=== PATIENT | female | born 1940 | race Caucasian/White ===

== ENCOUNTER 2017-02-15 01:51 | Inpatient (IN) | payer OTHER, MEDICARE ==
[~2017-02-15] VITALS: Ht 152.4 cm; Wt 49.9 kg
[~2017-02-15 01:51] MED LIST: ALDACTAZIDE 251 EACH PO; ALEVE220 M1; CALTRATE 600 +1 EACH PO; DAILY MULTIPLE1 EACH PO; EVISTA60 MG PO; GLUCOSA-CHOND-1 EACH; VAGIFEM10 MC1
[2017-02-15] MEDS ORDERED: DILAUDID2 M1 PO (10:19)
[2017-02-15] MEDS ORDERED: COLACE100 M1 PO (10:19)
[2017-02-15] MEDS ORDERED: MS CONTIN15 M2 PO (10:19)
[2017-02-15] MEDS ORDERED: MIRALAX17 G1 PO (10:19)
[2017-02-15] MEDS ORDERED: ASPIRIN EC325 M2 PO (10:19)
--- NOTE | 2017-02-15 10:24 | Patient Discharge Instructions ---
Discharge Instructions General Discharge Information You were seen/treated for: Left hip pain related to unilateral primary osteoarthritis You had these procedures: Left total hip replacement Watch for these problems: Increasing pain despite the use of pain medication. Increasing redness, warmth or swelling. Drainage of any type from incision. Inability to bear weight on operative leg. Persistent nausea and vomiting. Fever greater than 101.5 degrees. Do not soak the wound: Yes No bath, but you may shower: Yes Other wound care: Please keep wound clean and dry. No ointments or lotions of any type on or near incision at any time. No exceptions. Your dressing will be changed by your nurse on the second day after your surgery. Daily dry dressing changes are recommended each day thereafter. Do not soak your wound in a bath at any time until otherwise indicated by Dr. Rutledge. You may shower, please dry wound immediately after shower with a clean towel. Special Instructions: Aspirin: You are taking this medication to help prevent the development of blood clots. Please take with food to protect your stomach lining. Please take as directed. Constipation: Pain medication can be very constipating. Dr. Rutledge has recommended that you take Colace and miralax each day. You may discontinue this medication if you develop loose stool or diarrhea. If you wish to continue this medication, it is available over the counter. If you are unable to move your bowels after several days, if you are unable to pass gas and are developing bloating, nausea, or vomiting as a result, please contact your doctor. Diet Continue normal diet: Yes Recommended Diet: Regular Activity Full Activity/No Limits: No Activity Self Limited: Yes Pounds, do NOT lift more than: 10 Activity Limited to: Weight bear as tolerated Acute Coronary Syndrome Inclusion Criteria At DC or during hospital stay patient has or had the following: ACS DIAGNOSIS No Discharge Core Measures Meds if any: Prescribed or Continued at Discharge Meds if any: NOT Prescribed or Continued at Discharge Congestive Heart Failure Inclusion Criteria At DC or during hospital stay patient has or had the following: CHF DIAGNOSIS No Discharge Core Measures Meds if any: Prescribed or Continued at Discharge Meds if any: NOT Prescribed or Continued at Discharge Cerebrovascular accident Inclusion Criteria At DC or during hospital stay patient has or had the following: CVA/TIA Diagnosis No Discharge Core Measures Meds if any: Prescribed or Continued at Discharge Meds if any: NOT Prescribed or Continued at Discharge Venous thromboembolism Inclusion Criteria VTE Diagnosis No VTE Type NONE VTE Confirmed by (Test) NONE Discharge Core Measures - Per Current guidelines, there needs to be overlap - treatment for the first 5 days of Warfarin therapy. - If discharged on Warfarin prior to 5 days of - overlap therapy, the patient will need to be - assessed for post discharge needs including - *Post discharge parental anticoagulation - *Warfarin and/or parental anticoagulation education - *Follow up date to check INR post discharge At least 5 days overlap therapy as Inpatient No Meds if any: Prescribed or Continued at Discharge Note: Overlap Therapy is Warfarin and Anticoagulant Meds if any: NOT Prescribed or Continued at Discharge
--- NOTE | 2017-02-15 10:36 | Admission Core Measures ---
Admission Meds I reviewed the following Meds: Current Medications Sig/Bill Start time Last Medication Dose Stop Time Status Admin Acetaminophen 975 MG ONCE 02/15 NR (Tylenol) 02/15 2359 Estradiol 10 MCG .[TWICE WEEKLY] 02/15 830 UNVr (Vagifem) Oxycodone HCl 10 MG ONCE 02/15 NR (Roxicodone) 02/15 2359 Raloxifene HCl 60 MG DAILY 02/15 1000 AC (Evista 60MG) Spironolactone 25 MG DAILY 02/15 1000 AC (Aldactone) Vancomycin HCl 1,000 MG ONCE 02/15 NR Sodium Chloride 250 ML 02/15 2359 (Normal Saline 0.9%) Acute Coronary Syndrome Inclusion Criteria ACS Diagnosis No Inpatient Core Measures LDL Reminder: If No, please order W/I first 24hr of stay Congestive Heart Failure Inclusion Criteria CHF Diagnosis No Cerebrovascular accident Inclusion Criteria CVA/TIA Diagnosis No Inpatient Core Measures Bedside Swallow Eval Reminder: If BSE failed, place ST order Antithrombotic Reminder: Order Antithrombotic Medication by end of day 2 Antithrombotic Reminder: Document Reason Antithrombotic Not ordered by end of day 2 AFIB/Flutter Reminder: If Present, add to problem list AFIB/Flutter Reminder: Order Anticoag Medication for pts with AFIB/Flutter Atherosclerosis Reminder: If Present, add to problem list LDL Reminder: If No, please order W/I first 24hr of stay PT Order Reminder: If No, please order Venous thromboembolism Inpatient Core Measures VTE Risk Factors: Age > 40, Surgery No [facility] VTE prophylaxis d/t No contraindications No VTE Pharm Prophylaxis d/t No contraindications Inclusion Criteria - Per Current guidelines, there needs to be overlap - treatment for the first 5 days of Warfarin therapy. - Parenteral Anticoagulation (IV or SC) needs to be - given along with Warfarin therapy. VTE Diagnosis No VTE Type NONE VTE Confirmed by (Test) NONE Problem List As ranked by this Provider includes Assessment & Plan 1. Unilateral primary osteoarthritis, left hip HOME MEDS Home Med List Aldactazide (Aldactazide 25-25 Tablet) 25 MG-25 MG TABLET 1 TAB PO DAILY ? ( Reported) Aspirin (Ecotrin*) 325 MG TABLET.DR 1 TAB PO BID ANTICOAGULATION Calcium Carbonate/Vitamin D3 (Caltrate 600 + D Tablet) 600 MG-800 TABLET 1 TAB PO DAILY PROPHO (Reported) Docusate Sodium (Colace) 100 MG CAPSULE 1 CAP PO BID CONSITPATION Hydromorphone HCl (Dilaudid) 2 MG TABLET 1-2 TAB PO Q4-6 PRN PRN PAIN Morphine Sulfate (Ms Contin) 15 MG TABLET.ER 1 TAB PO BID PAIN Multivitamin (Daily Multiple Vitamin) 1 EACH TABLET 1 TAB PO DAILY PROPHO ( Reported) Polyethylene Glycol 3350 (Miralax) 17 GRAM POWD.PACK 1 PAC PO DAILY CONSTIPATION Raloxifene Hydrochloride (Evista) 60 MG TABLET 1 TAB PO DAILY HRT (Reported)
--- NOTE | 2017-02-15 10:38 | Surgical Discharge Summary ---
Visit Information Visit Dates Admission Date: 02/15/17 Discharge Date: 02/16/17 History of Present Illness Chief Complaint: Left hip unilateral primary osteoarthritis Surgical History Pertinent Surgical History: non-contributory Review of Systems: See H&P Hospital Course Course Attending Physician: LALO MIRANDA MD Primary Care Physician: PATIENT HAS NO PRIMARY CARE DR Hospital Course: Patient was admitted to the hospital for an elective total joint replacement. The procedure was tolerated well and the patient was transferred to a general surgical floor. Diet was advanced and tolerated and the patient voided spontaneously. The patient was evaluated and treated by physical therapy. At the time of hospital discharge, [facility] vital signs were stable and within normal limits, neurovascular status was intact, and pain was controlled with the use of oral pain medications. Allergies: Coded Allergies: Penicillins (Severe, HIVES..THROAT TIGHTNESS 02/10/17) Sulfa (Sulfonamide Antibiotics) (Severe, RASH...DIFFICULTY BREATHING 02/10/17) codeine (CHILLS... N & V 02/10/17) Disposition Summary Disposition Principal Diagnosis: Left hip unilateral primary osteoarthritis Additional Diagnosis: None Discharge Disposition: home health services Discharge Instructions General Discharge Information Code Status: Full Code Patient's Diet: Regular, advance as tolerated Patient's Activity: WBAT Follow-Up Instructions/Appts: Follow up with Dr. Miranda in 6 weeks from date of surgery. Please call his office to arrange and/or confirm this appointment. Medications at Discharge Discharge Medications: Continue taking these medications: Raloxifene Hydrochloride (Evista) 60 MG TABLET 1 Tablet ORAL DAILY Comments: Last Taken: 02/16/17 Time: 0800 AM Aldactazide (Aldactazide 25-25 Tablet) 25 MG-25 MG TABLET 1 Tablet ORAL DAILY Comments: NOT GIVEN IN HOSPITAL Estradiol (Vagifem) 10 MCG TABLET 2X PER WEEK Comments: Last Taken: 02/16/17 Time: 0600 AM Multivitamin (Daily Multiple Vitamin) 1 EACH TABLET 1 Tablet ORAL DAILY Comments: NOT GIVEN IN HOSPITAL Calcium Carbonate/Vitamin D3 (Caltrate 600 + D Tablet) 600 MG-800 TABLET 1 Tablet ORAL DAILY Comments: NOT GIVEN IN HOSPITAL Naproxen Sodium (Aleve) 220 MG CAPSULE as needed for PAIN Comments: NOT GIVEN IN HOSPITAL Gluc/[place]-MSM#1/Vit C/Jaret/Bor (Tkhaezh-Wxuwx-PJZ Complex Cplt) 375-500 MG TABLET DAILY Comments: NOT GIVEN IN HOSPITAL Start taking the following new medications: Aspirin (Ecotrin*) 325 MG TABLET.DR 1 Tablet ORAL TWICE DAILY Qty = 60 No Refills Comments: Last Taken: 02/16/17 Time: 0930 AM Docusate Sodium (Colace) 100 MG CAPSULE 1 Capsule ORAL TWICE DAILY Qty = 14 No Refills Instructions: DISCONTINUE USE IF YOU DEVELOP LOOSE STOOL OR DIARRHEA Comments: Last Taken: 02/16/17 Time: 0930 AM Polyethylene Glycol 3350 (Miralax) 17 GRAM POWD.PACK 1 Packet ORAL DAILY Qty = 7 No Refills Instructions: dissolve in water, DISCONTINUE USE IF YOU DEVELOP LOOSE STOOL OR DIARRHEA Comments: Last Taken: 02/16/17 Time: 0930 AM Hydromorphone HCl (Dilaudid) 2 MG TABLET 1-2 Tablet ORAL EVERY 4-6 HOURS NEEDED as needed for PAIN Qty = 36 No Refills Comments: Last Taken: 02/16/17 Time: 0930 AM Morphine Sulfate (Ms Contin) 15 MG TABLET.ER 1 Tablet ORAL TWICE DAILY Qty = 2 No Refills Comments: NOT GIVEN IN HOSPITAL
--- NOTE | 2017-02-15 13:19 | RADIOLOGY REPORT ---
EXAMINATION: XR HIP, LEFT CLINICAL INFORMATION: Left hip replacement. Postop. COMPARISON: None TECHNIQUE: AP and crosstable lateral views of the left hip. FINDINGS: A left hip prosthesis is intact. There is no evidence for failure or migration. There is expected subcutaneous gas within the region of the left hip. Intact lower lumbar spine fusion hardware is visualized. IMPRESSION: Intact left hip prosthesis. Expected postoperative appearance.
--- NOTE | 2017-02-15 14:33 | PN- Orthopedic ---
Subjective Subjective: The patient was seen this afternoon postoperatively. She reports that she is currently pain-free and has no complaints of the current time. Objective Vital Signs and I&Os Afebrile stable vital signs Physical Exam: general: Alert, oriented, and in no obvious distress Skin: Warm and dry Cardiac: S1-S2 regular Pulmonary: Bilateral breath sounds were equal with good exchange Extremities: Bilateral lower extremities are warm without calf tenderness or significant edema. Gross motor and sensory are intact. Left hip surgical dressing is clean, dry, and intact. Assessment/Plan Assessment/Plan Assessment: 77-year-old female status post left total hip arthroplasty. Postoperatively patient is processing as expected and is under adequate control. Plan: Out of bed with physical therapy Continue current pain management Strict I's and O's GI and DVT prophylaxis first dose of aspirin to start tonight Advance diet as tolerated Resume home medications Follow-up morning laboratory studies Postoperative prophylactic antibiotics Core Measures/Miscellaneous Venous Thromboembolism VTE Risk Factors: Age > 40, Surgery VTE Contraindications: No Contraindications VTE Diagnosis: No VTE Type: NONE VTE Confirmed by (Test): NONE Beta Lenny Is Beta Lenny a Home Med? No Antibiotics Is Patient on Antibiotics? Yes If Yes: prophylaxis
[2017-02-15 14:45] VITALS: BP 98/48
--- NOTE | 2017-02-15 15:10 | Operative Report ---
Operative/Inv Procedure Report Surgery Date: 02/15/17 Name of Procedure: Left total hip replacement Pre-Operative Diagnosis: Primary left hip DJD Post-Operative Diagnosis: Same Estimated Blood Loss: 250 Surgeon/Public Transit Trolley Driver: RUBEN PAYNE,LALO Chavez Anesthesia: block Operative/Procedure Note Note: Description of Procedure: The patient was taken to the operating room and positively identified. After induction of spinal anesthesia and administration of appropriate pre-operative antibiotics, the patient was positioned supine on the operating room table and all bony prominences were well padded. After performing a surgical timeout, the left lower extremity was prepped and draped in the usual sterile fashion. A direct anterior approach was made to the left hip. The incision was carried sharply through superficial soft tissues to the level of the fascia. Meticulous hemostasis was maintained with Bovie electocautery. The fascia over the tensor fascia maria del rosario muscle was opened sharply and the interval between the TFL and the sartorius was entered bluntly taking care to stay lateral to the lateral femoral cutaneous nerve. Retractors were placed around the femoral neck and the pericapsular fat was identified. The ascending branches of the lateral femoral circumflex vessels were identified and carefully coagulated. The pericapsular fat and anterior capsule were then resected. A napkin ring osteotomy was performed and the femoral head was removed without difficulty. Attention was then turned to the acetabulum. After appropriate placement of retractors, the acetabulum was exposed. Soft tissue was cleaned from the acetabular margin and notch. Overhanging osteophytes were removed and the teardrop was exposed. The acetabulum was then sequentially reamed to accept a 50 mm Johnston Tritanium hemispherical solid back shell. This was impacted into place in the appropriate position and fitted with a 32 mm Trident X3 zero degree polyethylene insert. Attention was then turned to the femur. After performing the appropriate ligament releases, the proximal femur was exposed. It was then sequentially broached to accept a size 5 Johnston accolade 2 stem. This was trialed for leg length and stability. The trial component was removed and the final component was impacted into place. The trunnion was carefully cleaned and fit with a 32 mm, +0 Biolox delta ceramic femoral head. The hip was reduced and put through a full range of motion and found to be stable. The articular space was then irrigated with sterile saline. The periarticular soft tissues were infilitrated with Marcaine. The fascial layer was closed with interrupted #1 vicryl suture and the skin was re-approximated with interrupted 2 -0 vicryl. The skin was closed with a running 3-0 V-Lock suture. Steri-strips and a sterile dressing were applied. The patient was awakened and taken to the recovery room in satisfactory condition.
--- NOTE | 2017-02-15 15:33 | NUR ---
PT ARRIVED ON FLOOR AT 1445 FROM PACU. REPORT RECD FROM LILLY. PT A&OX3, VSS, AFEBRILE, PT ON RA. NO DISTRESS, NO PAIN. D5-1/2NS INFUSING THROUGH #20 RW. BED ALARM PLACED ON BED, CHAIR ALARM PLACED ON CHAIR. PT AT BEDSIDE. PT ASKING FOR FOOD. DINING SERVICES CALLED TO PLACE ORDER. WILL CONTINUE TO MONITOR.
[2017-02-15 17:00] VITALS: BP 98/52
[2017-02-15 19:00] VITALS: BP 100/52; BP 100/58
[2017-02-15 23:40] VITALS: BP 92/58
[2017-02-16 07:12] VITALS: BP 88/52
--- NOTE | 2017-02-16 07:47 | PN- Orthopedic ---
Subjective Subjective: The patient was seen this morning postoperatively day #1. She reports that her pain is under adequate control with complaints of current time. She does mention that her left lower leg in the pretibial area is more painful than usual and was hoping that it would improve with her hip surgery. Objective Vital Signs and I&Os Vital Signs Date Time Temp Pulse Resp B/P B/P Pulse O2 O2 Flow FiO2 Mean Ox Delivery Rate 02/16 0712 98.0 56 20 88/52 96 Room Air 02/15 2340 98.2 62 18 92/58 96 02/15 1900 98.9 66 20 100/58 97 Room Air 02/15 1700 98.9 66 20 98/52 98 Room Air 02/15 1445 98.0 64 20 98/48 97 Room Air Intake & Output 02/16 0802/16 0000 02/15 1600 02/15 0800 02/15 0000 02/14 1600 Intake Total 600 Output Total 400 1050 Balance -400 -450 Intake, IV 600 Output, Urine 400 1050 Patient 110 lb Weight Weight Estimated Measurement Method Physical Exam: Gen.: Alert and in no obvious distress Skin: Warm and dry Extremities: Bilateral lower extremities are warm without calf tenderness or significant edema. Gross motor and sensory are intact. Left hip surgical dressing is clean, dry, and intact. Assessment/Plan Assessment/Plan Assessment: 77-year-old female status post left total hip arthroplasty postoperative day #1. The patient is progressing as expected and her pain is under adequate control Plan: Hep-Lock IV fluids Follow-up morning laboratory studies Out of bed with physical therapy GI and DVT prophylaxis Continue current pain regiment Discharge home later today after worked with PT Core Measures/Miscellaneous Venous Thromboembolism VTE Risk Factors: Age > 40, Surgery VTE Contraindications: No Contraindications VTE Diagnosis: No VTE Type: NONE VTE Confirmed by (Test): NONE Beta Lenny Is Beta Lenny a Home Med? No Antibiotics Is Patient on Antibiotics? No
[2017-02-16 08:31] LABS: ABSOLUTE BASOPHIL COUNT 0 /CUMM (0.0-0.2); ABSOLUTE EOSINOPHIL COUNT 0.1 /CUMM (0.0-0.7); ABSOLUTE GRANULOCYTE CT 9.3 /CUMM (1.4-6.5); ABSOLUTE LYMPH COUNT 1.1 /CUMM (1.2-3.4); ABSOLUTE MONOCYTE COUNT 1.3 /CUMM (0.10-0.60); BASOPHIL % 0.1 % (0.0-2.0); EOSINOPHIL % 0.7 % (0-5); GRANULOCYTE % 79.1 % (42.2-75.2); HEMATOCRIT 33.3 % (37-47); MEAN CORPUSCULAR HGB 31.6 PG (27.0-31.0); MEAN CORPUSCULAR HGB CONC 33.5 G/DL (33.0-37.0); MEAN CORPUSCULAR VOLUME 94.3 FL (81.0-99.0); MEAN PLATELET VOLUME 7.8 FL (7.4-10.4); PLATELET COUNT 251 /CUMM (130-400); RBC DISTRIBUTION WIDTH 14.1 % (11.5-14.5); RED BLOOD CELL CT 3.53 /CUMM (4.20-5.40); WHITE BLOOD CELL COUNT 11.7 /CUMM (4.8-10.8)
--- NOTE | 2017-02-16 11:27 | NUR ---
NURSING NOTE: PATIENT ASSISTED WITH DRESSING FOR DISCHARGE, ALL BELONGINGS PACKED UP, IV DISCONTINUED, ARNOLD STOCKINGS IN PLACE. PAIN AT THIS TIME CONTROLLED WITH MEDICAITONS. DURACOLD ICE PACKS, HIP KIT, AND ROLLING WALKER WITH PATIENT. MEDICATIONS READY FOR TELECOMMUNICATOR IN PHARMACY. AT BEDSIDE, WHEELCHAIR CALLED FOR DISCHARGE ASSISTANCE.
== END 2017-02-16 11:50 | disposition home health service (06) | DRG 470 ==
LOC: 2NB 01:51 → SDA 01:51 → ENRESERV 13:18 → ENTRNSPT 13:49 → EDTRNSPT 13:55 → EDTRNSPTSTS 13:55 → 2NB 14:06 → CMPTRNSPT 14:10 → ENPENDDIS 02-16 07:48 → 2NB 02-16 11:50
PROVIDERS: Nurse Practitioner; ADMIT Orthopaedic Surgery
PROC: 0SRB04A Replacement of Left Hip Joint with Ceramic on Polyethylene Synthetic Substitute, Uncemented, Open Approach (ICD-10-PCS; principal; 2017-02-15)
DX: M16.12 Unilateral primary osteoarthritis, left hip (principal); M25.752 Osteophyte, left hip; Z85.820 Personal history of malignant melanoma of skin; M85.80 Other specified disorders of bone density and structure, unspecified site
CPT/HCPCS: 2NBP; 36415; 73502-LT; 82436; 97110-GO; 97116-GO; 97161-GP; 97530-GO; J0131; J0690; J0735; J1100; J2405; J2550; J3370; J7040; J7042